=== PATIENT | male | born 1980 | race Caucasian/White ===

== ENCOUNTER 2018-08-03 19:46 | Emergency (ER) | payer MEDICAID ==
[2018-08-03] MEDS: DEXAMETHASONE 10 MG/ML 1 ML INJ IM (21:37)
== END 2018-08-03 22:10 | disposition home or self-care (01) ==
LOC: FTE 19:46
DX: R21 Rash and other nonspecific skin eruption (principal)
CPT/HCPCS: 96372; 99284-25; J1100